=== PATIENT | female | born 2000 | race Caucasian/White ===

== ENCOUNTER 2018-08-10 10:54 | Emergency (ER) | payer BC ==
[2018-08-10 11:30] VITALS: BP 127/76
--- NOTE | 2018-08-10 12:15 | UC ---
Lower Extremity/Ankle HPI - HPI Summary HPI Summary: On Sunday, patient noted a little bit of pain to her right inner thigh(6 days ago). On Sunday she noted the area was starting to turn a little red. 2 days ago she went to her hearing dog trainer who felt that it was an infection. She did have a strain to her right quadricep 3 days prior to the onset of this but does not feel it is related. She is here because the rash seems to get worse. She notes that it is red and a little raised. She has no associated fever or chills, arthralgia or calf pain/swelling or itching. Denies hx insect/tick bites She's no other complaints. - History of Current Complaint Chief Complaint: Manjit Stated Complaint: RIGHT LEG COMPLAINT Time Seen by Provider: 08/10/18 12:08 Hx Obtained From: Patient Hx Last Menstrual Period: "two weeks ago" Onset/Duration: Gradual Onset Pain Intensity: 0 Aggravating Factor(s): Nothing Alleviating Factor(s): Nothing Able to Bear Weight: Yes - Allergies/Home Medications Allergies/Adverse Reactions: Allergies Allergy/AdvReac Type Severity Reaction Status Date / Time Latex, Natural Rubber Allergy Hives Verified 08/10/18 11:27 Home Medications: Home Medications Ferrous Sulfate TAB* 325 mg PO DAILY 08/10/18 [History Confirmed 08/10/18] Vitamin THERAPEUTIC TAB* [Theragran TAB*] 1 tab PO DAILY 08/10/18 [History Confirmed 08/10/18] PMH/Surg Hx/FS Hx/Imm Hx Previously Healthy: Yes - Surgical History Surgical History: Yes Surgery Procedure, Year, and Place: Appendectomy, 2017, [place]; Laporascopy, 2016; Pilonidal Cystectomy, 2011 - Family History Known Family History: Positive: None - Social History Occupation: Student Lives: Dormitory/Roommates Alcohol Use: Rare Substance Use Type: None Smoking Status (MU): Never Smoked Tobacco - Immunization History Vaccination Up to Date: Yes Review of Systems Constitutional: Negative Skin: Rash Eyes: Negative ENT: Negative Respiratory: Negative Cardiovascular: Negative Gastrointestinal: Negative Genitourinary: Negative Motor: Negative Neurovascular: Negative Musculoskeletal: Other: - R lateral quadricep "sore" Neurological: Negative Psychological: Negative Is Patient Immunocompromised?: No All Other Systems Reviewed And Are Negative: Yes Physical Exam Triage Information Reviewed: Yes Appearance: Well-Appearing Vital Signs: Initial Vital Signs Temp 98.1 F 08/10/18 11:24 Pulse 78 08/10/18 11:24 Resp 15 08/10/18 11:24 BP 127/76 08/10/18 11:24 Pulse Ox 100 08/10/18 11:24 Vital Signs Reviewed: Yes Eyes: Positive: Conjunctiva Clear ENT: Positive: Pharynx normal, TMs normal. Negative: Nasal congestion Neck: Positive: Supple, Nontender, No Lymphadenopathy Respiratory: Positive: Lungs clear, Normal breath sounds Cardiovascular: Positive: RRR, No Murmur Abdomen Description: Positive: Nontender, No Organomegaly, Soft Bowel Sounds: Positive: Present Musculoskeletal: Positive: ROM Intact, No Edema Neurological: Positive: Alert Psychological: Positive: Age Appropriate Behavior Skin Exam: Normal, Other - R inner thigh has 3 separate slightly raised pink areas. The largest is a little deeper in color and slightly indurated. The other 2 areas are almost connected by a small lacy rash. The entire right lower extremity has no cords or tenderness and there is no inguinal adenopathy or arthralgia. The leg has full sensorivascular and motor function. The pattern does not fit that of a vein. The areas do dao and are not petechial , blistering or scaly. Lower Extremity Course/Dx - Course Course Of Treatment: No concern for vasculitis, fungal infections or infestation. No concern for DVT. will cover for possible cellulitis. pt has f/u at the [facility] on sunday and will go to the ER for fever or any worsening. - Differential Dx/Diagnosis Differential Diagnosis/HQI/PQRI: Cellulitis, Contusion, DVT, Infection, Phlebitis Provider Diagnoses: Acute rash R inner thigh. Possible early cellulitis Discharge - Sign-Out/Discharge Documenting (check all that apply): Patient Departure All imaging exams completed and their final reports reviewed: No Studies - Discharge Plan Condition: Stable Disposition: HOME Prescriptions: Cephalexin CAP* [Keflex CAP*] 500 mg PO TID 7 Days #21 cap Patient Education Materials: Cellulitis (DC), Acute Rash (ED) Referrals: [facility] [Outside] - 2 Days - Billing Disposition and Condition Condition: STABLE Disposition: Home
== END 2018-08-10 12:28 | disposition home or self-care (01) ==
LOC: UCCORT 10:54
DX: R21 Rash and other nonspecific skin eruption (principal)
CPT/HCPCS: 99202; G0463